=== PATIENT | female | born 1950 | race Caucasian/White ===

== ENCOUNTER 2023-04-05 14:39 | Emergency (ER) | payer MEDICARE ==
[~2023-04-05] VITALS: Ht 144.8 cm; Wt 72.6 kg
[~2023-04-05 14:39] MED LIST: ACET325; AEROECLIPSE1 EACH MC; ALBU90I INH; ALBU90OI6 INH; ALBU90OI61 INH; AZIT250 PO; CITA20; CITA20 PO; CLOB.05TC TOP; Cipro500 MG PO; Citalopram HBr10 MG PO; Cyclobenzaprine5 MG PO; DICLOFENAC SOD100 G1 TP; Duoneb 2.5-0.5 M3 ML INH; ERGO50000 PO; GUAI120S1 PO; HYDACE5 PO; HYDCHL12.5 PO; IBUP200; ISODICACE; LOSA50 PO; LOSARTAN POTAS100 MG PO; Mobic15 MG PO; NAPR500 PO; NAPR500ERA PO; Naltrexone HCl50 MG; Norco 5-325 Ta1 EACH PO; OMEP20ER PO; PROBIOTIC1 EAC1 PO; Percocet 5-3251 EACH PO; Pregnenolone Po25 GM MC; QUIN10; QUIN10 PO; RXHYDACE PO; THYR60; THYR60 PO; VALA500 PO; VALACYCLOVIR1000 M1; Valium5 MG PO; [UNRECOGNIZED DRUG - OTHER]
[2023-04-05 15:25] LABS: BASOPHILS ABSOLUTE AUTO 0.04 K/mm3 (0.00-0.23); BASOPHILS PERCENT AUTO 1 % (0-2); EOSINOPHILS ABSOLUTE AUTO 0.05 K/mm3 (0.00-0.68); EOSINOPHILS PERCENT AUTO 1 % (0-6); Hematocrit 38.7 % (33.0-51.0); Hemoglobin 13.8 g/dL (11.5-16.0); IMMATURE GRAN ABSOLUTE AUTO 0.01 K/mm3 (0.00-0.10); IMMATURE GRAN PERCENT AUTO 0 % (0-1); LYMPHOCYTES ABSOLUTE AUTO 1.05 K/mm3 (0.84-5.20); LYMPHOCYTES PERCENT AUTO 20 % (21-46); MONOCYTES PERCENT AUTO 9 % (4-13); Mean Corpuscular HGB Conc 35.7 g/dL (31.5-36.5); Mean Corpuscular Volume 90 fL (80-100); Mean Platelet Volume 9.5 fL (9.1-12.4); NEUTROPHILS ABSOLUTE AUTO 3.74 K/mm3 (1.96-9.15); NEUTROPHILS PERCENT AUTO 69 % (41-73); Platelet Count 195 K/mm3 (150-400); RDW Standard Deviation 42.9 fL (35.1-46.3); Red Blood Cell Count 4.31 M/mm3 (3.80-5.20); White Blood Cell Count 5.39 K/mm3 (4.00-11.30)
[2023-04-05 15:51] LABS: Albumin, Blood 3.9 g/dL (3.4-5.0); Albumin/Globulin Ratio 1.3 (0.8-1.8); Bilirubin, Total 0.4 mg/dL (0.1-1.0); Bun/Creatinine Ratio 24.2 (12.0-20.0); Calcium, Blood 9.3 mg/dL (8.5-10.1); Creatinine, Blood 0.54 mg/dL (0.40-1.00); Total Protein, Blood 6.9 g/dL (6.4-8.2)
[2023-04-05 18:00] VITALS: BP 198/91
== END 2023-04-05 18:11 | disposition home or self-care (01) ==
LOC: ER 14:39
PROVIDERS: Physician Assistant
DX: R07.9 Chest pain, unspecified (principal); I10 Essential (primary) hypertension; J45.909 Unspecified asthma, uncomplicated; Z79.899 Other long term (current) drug therapy
CPT/HCPCS: 71046; 80053; 83690; 84484; 85025; 93005; 93010; 99284-25

== ENCOUNTER 2024-04-20 15:45 | Emergency (ER) | payer OTHER, MEDICARE ==
[~2024-04-20] VITALS: Ht 144.8 cm; Wt 77.1 kg
[2024-04-20] MEDS ORDERED: Ondansetron 4 MG SoluTab SL ONE (16:00)
[2024-04-20 16:08] VITALS: BP 144/64
[2024-04-20] MEDS ORDERED: Diphth,Pertuss(Acell),Tet Vac 0.5 ML VIAL IM ONE (16:30)
[2024-04-20] MEDS ORDERED: Ibuprofen 600 MG Tab PO ONE (16:40)
[2024-04-20] MEDS ORDERED: Pregabalin 75 MG Cap PO ONE (16:45)
== END 2024-04-20 17:52 | disposition home or self-care (01) ==
LOC: ER 15:45
DX: S71.111A Laceration without foreign body, right thigh, initial encounter (principal); S60.222A Contusion of left hand, initial encounter; I10 Essential (primary) hypertension; J45.909 Unspecified asthma, uncomplicated; V09.9XXA Pedestrian injured in unspecified transport accident, initial encounter; Z79.899 Other long term (current) drug therapy
CPT/HCPCS: 12002; 73130; 90471; 90715; 99283-25; A9270